=== PATIENT | male | born 1990 | race Caucasian/White ===

== ENCOUNTER 2024-11-06 19:35 | Emergency (ER) | payer OTHER ==
[2024-11-06] MEDS ORDERED: TETRACAINE HCL 0.5% 4ML OPTH ONE (20:07)
[2024-11-06] MEDS ORDERED: FLUORESCEIN SODIUM 1 MG/WRAP ONE (20:07)
[2024-11-06] MEDS ORDERED: TOBRAMYCIN SULF 0.3% OPTH OINT ONE (20:58)
[2024-11-06] MEDS ORDERED: CYCLOPENTOLATE 2% OPTH 2 ML ONE (21:18)
[2024-11-06] MEDS ORDERED: HYDROCODONE/APAP 10/325 TAB ONE (21:18)
[2024-11-06] MEDS ORDERED: IBUPROFEN 400 MG TAB ONE (21:35)
--- NOTE | 2024-11-06 21:36 | EDPHYS ---
Physician Documentation [facility] Name: Edmar Martinez Age: 34 yrs Sex: Male : 1990 Arrival Date: 11/06/2024 Time: 19:35 Bed 8 Private MD: ED Physician Taras Fonseca HPI: 11/06 21:23 This 34 yrs old Male presents to ER via Ambulatory with complaints of Foreign ian Body In Eye. 21:23 The patient is experiencing foreign body sensation, pain, The patient sustained fb at 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 Onset: The symptoms/episode began/occurred 3 day(s) ago. Duration: the symptoms are continuous. Aggravated by blinking, closing eye, light, opening eye. Associated signs and symptoms: Pertinent positives: None. Pertinent negatives: None. Patient does not utilize any form of vision correction. Severity of symptoms: At their worst the symptoms were moderate in the emergency department the symptoms are unchanged. The patient has not experienced similar symptoms in the past. Historical: - Allergies: 20:04 Sulfa (Sulfonamide Antibiotics); me1 - Home Meds: 20:04 None [Active]; me1 - PMHx: 20:04 None; me1 - PSHx: 20:04 Tonsillectomy; Myringotomy and insertion of tympanic ventilation tube; me1 - Immunization history:: Adult Immunizations up to date. - Infectious Disease History:: Denies. - Social history:: Smoking status: Patient reports the use of cigarette tobacco products, smokes one-half pack cigarettes per day. - Family history:: not pertinent. ROS: 21:23 Constitutional: Negative for fever, chills, and weight loss, ENT: Negative for injury, ian pain, and discharge, Neck: Negative for injury, pain, and swelling, Cardiovascular: Negative for chest pain, palpitations, and edema, Respiratory: Negative for shortness of breath, cough, wheezing, and pleuritic chest pain, Abdomen/GI: Negative for abdominal pain, nausea, vomiting, diarrhea, and constipation, Back: Negative for injury and pain, MS/Extremity: Negative for injury and deformity, Skin: Negative for injury, rash, and discoloration, Neuro: Negative for headache, weakness, numbness, tingling, and seizure, Psych: Negative for depression, anxiety, suicide ideation, homicidal ideation, and hallucinations, Allergy/Immunology: Negative for hives, rash, and allergies, Endocrine: Negative for neck swelling, polydipsia, polyuria, polyphagia, and marked weight changes, 21:23 Eyes: Positive for foreign body sensation, injury or acute deformity, pain, Exam: 21:23 Constitutional: This is a well developed, well nourished patient who is awake, alert, ian and in no acute distress. Head/Face: Normocephalic, atraumatic. ENT: Nares patent. No nasal discharge, no septal abnormalities noted. Tympanic membranes are normal and external auditory canals are clear. Oropharynx with no redness, swelling, or masses, exudates, or evidence of obstruction, uvula midline. Mucous membranes moist. Neck: Trachea midline, no thyromegaly or masses palpated, and no cervical lymphadenopathy. Supple, full range of motion without nuchal rigidity, or vertebral point tenderness. No Meningismus. Chest/axilla: Normal chest wall appearance and motion. Nontender with no deformity. No lesions are appreciated. Cardiovascular: Regular rate and rhythm with a normal S1 and S2. No gallops, murmurs, or rubs. Normal PMI, no JVD. No pulse deficits. Respiratory: Lungs have equal breath sounds bilaterally, clear to auscultation and percussion. No rales, rhonchi or wheezes noted. No increased work of breathing, no retractions or nasal flaring. Abdomen/GI: Soft, non-tender, with normal bowel sounds. No distension or tympany. No guarding or rebound. No evidence of tenderness throughout. Back: No spinal tenderness. No costovertebral tenderness. Full range of motion. Skin: Warm, dry with normal turgor. Normal color with no rashes, no lesions, and no evidence of cellulitis. MS/ Extremity: Pulses equal, no cyanosis. Neurovascular intact. Full, normal range of motion., bilateral aka Neuro: Awake and alert, GCS 15, oriented to person, place, time, and situation. Cranial nerves II-XII grossly intact. Motor strength 5/5 in all extremities. Sensory grossly intact. Cerebellar exam normal. Normal gait. Psych: Awake, alert, with orientation to person, place and time. Behavior, mood, and affect are within normal limits. 21:23 Eyes: Periorbital structures: appear normal, no acute changes, no abrasion, no cellulitis, no contusion, no ecchymosis, no erythema, no laceration, no swelling, Pupils: equal, round, and reactive to light and accomodation, Extraocular movements: intact throughout, Conjunctiva: injected, Corneas: foreign body, on the right, at 10 o'clock, a fluorescein strip employed to appreciate the findings, Sclera: no appreciated abnormality, Lids and lashes: appear normal, on the right, no acute changes, funduscopic exam reveals no obvious abnormalities, Nystagmus: is not appreciated, Vital Signs: 20:02 BP 132 / 90; Pulse 99; Resp 16; Temp 98.5; Pulse Ox 99% ; Weight 83.91 kg; Height 6 ft. me1 0 in. ; Pain 6/10; 21:01 BP 116 / 81; Pulse 59; Resp 16; Pulse Ox 97% ; dd2 22:21 BP 120 / 81; Pulse 60; Resp 18; Temp 98.5; Pulse Ox 97% ; Pain 0/10; bm8 20:02 Body Mass Index 25.09 (83.91 kg, 182.88 cm) me1 20:02 Pain Scale: Adult me1 22:21 Pain Scale: Adult bm8 Kasey Coma Score: 21:01 Eye Response: spontaneous(4). Motor Response: obeys commands(6). Verbal Response: dd2 oriented(5). Total: 15. 22:21 Eye Response: spontaneous(4). Motor Response: obeys commands(6). Verbal Response: bm8 oriented(5). Total: 15. Procedures: 21:29 Foreign Body Removal: metal criselda, tetracaine , needle bevel to remove, rust ring ian present. MDM: 19:51 Medical Screening Exam initiated ian 21:29 Differential diagnosis: Corneal abrasion of Corneal ulcer of Foreign body in right eye. ian Data reviewed: vital signs, nurses notes. Consideration of Admission/Observation Escalation of care including admission/observation considered. I considered the following discharge prescriptions or medication management in the emergency department Medications were administered in the Emergency Department. See MAR. Test considered but Not performed: Labs: no labs. Care significantly affected by the following chronic conditions: none. Counseling: I had a detailed discussion with the patient and/or guardian regarding the historical points, exam findings, and any diagnostic results supporting the discharge/admit diagnosis, the need for outpatient follow up, for definitive care, an opthalmologist. 21:32 ED course: dw dr prabhakar longo , 1030 in the morning, will see. [facility] [place] [facility] 11/06 19:52 Order name: Eye Tray; Complete Time: 20:17 [facility] [place] [facility] 11/06 19:52 Order name: Fluoresene Opth strip; Complete Time: 21:09 [facility] [place] [facility] 11/06 21:22 Order name: Misc. Order: patch eye; Complete Time: 21:34 ian Administered Medications: 21:09 Drug: Tetracaine Ophthalmic Drops 0.5 % 1 drops Ophthalmic once Route: Ophthalmic; dd2 Site: right eye; 22:23 Follow up: Response: No adverse reaction bm8 21:28 Drug: Tobramycin Ophthalmic Ointment (0.3 %) 0.5 inches Ophthalmic once; right eye dd2 Route: Ophthalmic; Site: right eye; 22:22 Follow up: Response: No adverse reaction bm8 21:28 Not Given (Physician Discretion): norco10 mg-325 mg 1 tabs PO once dd2 21:28 Drug: Cyclopentolate Drops 0.5 % Ophthalmic Drops (0.5 %) 1 drops Ophthalmic once; dd2 right eye Route: Ophthalmic; Site: right eye; 22:22 Follow up: Response: No adverse reaction bm8 21:37 Drug: Ibuprofen PO 800 mg PO once Route: PO; bm8 22:22 Follow up: Response: No adverse reaction bm8 Disposition Summary: 11/06/24 21:35 Discharge Ordered Notes: Location: Home ian Problem: new ian Symptoms: have improved ian Condition: Stable ian Diagnosis - Ocular pain, right eye - corneal foreign body, removed with residual rust ring ian Followup: ian - With: Private Physician - When: Tomorrow - Reason: Recheck today's complaints, Continuance of care, Re-evaluation by your physician Followup: ian - With: Grey Longo MD - When: Today - Reason: Recheck today's complaints, Re-evaluation by your physician Discharge Instructions: - Discharge Summary Sheet ian - Corneal Abrasion ian - Corneal Abrasion, [id number] ian - Foreign Body ian Forms: - Medication Reconciliation Form ian - Antibiotic Education ian - Prescription Opioid Use ian - Patient Portal Instructions ian - Leadership Thank You Letter ian Prescriptions: - Tobrex 0.3 % Ophthalmic ointment - instill 1 application OPHTHALMIC route every 4-6 hours for 7 days; 3.5 gram ian tube; Refills: 0, Product Selection Permitted Signatures: Taras Fonseca, Diane Steele MD, cha, RN RN me1 Kane Michaud RN RN bm8 CARMINE LOZANO RN RN dd2
--- NOTE | 2024-11-06 21:36 | ER ---
Nurse's Notes [facility] Name: Edmar Martinez Age: 34 yrs Sex: Male : 1990 Arrival Date: 11/06/2024 Time: 19:35 Bed 8 Private MD: Diagnosis: Ocular pain, right eye-corneal foreign body, removed with residual rust ring Presentation: 11/06 20:02 Chief complaint: Patient states: he still has a piece of metal in his right eye since sc1 . Has been on polymixin sulfate and trimethoprim eye drops since Thursday. Pain is 6/10. Coronavirus screen: Vaccine status: Patient reports being unvaccinated. Ebola Screen: No symptoms or risks identified at this time. Initial Sepsis Screen: Does the patient meet any 2 criteria? No. Patient's initial sepsis screen is negative. Does the patient have a suspected source of infection? No. Patient's initial sepsis screen is negative. Risk Assessment: Do you want to hurt yourself or someone else? Patient reports no desire to harm self or others. Onset of symptoms was November 03, 2024. 20:02 Method Of Arrival: Ambulatory [facility] 20:02 Acuity: RALPH 4 me1 Triage Assessment: 20:04 General: Appears uncomfortable, unkempt, well developed, well nourished, Behavior is me1 calm, cooperative, appropriate for age. Pain: Complains of pain in right eye Pain does not radiate. Pain currently is 6 out of 10 on a pain scale. Quality of pain is described as sharp, stinging, Pain began 2-3 days ago. Is continuous. EENT: Reports pain in right eye. Neuro: Level of Consciousness is awake, alert, obeys commands, Oriented to person, place, time, situation, Appropriate for age. Cardiovascular: Patient's skin is warm and dry. Respiratory: Airway is patent Respiratory effort is even, unlabored, Respiratory pattern is regular, symmetrical. Derm: Skin is intact, is healthy with good turgor, Skin is pink, warm \T\ dry. Historical: - Allergies: 20:04 Sulfa (Sulfonamide Antibiotics); me1 - Home Meds: 20:04 None [Active]; me1 - PMHx: 20:04 None; me1 - PSHx: 20:04 Tonsillectomy; Myringotomy and insertion of tympanic ventilation tube; me1 - Immunization history:: Adult Immunizations up to date. - Infectious Disease History:: Denies. - Social history:: Smoking status: Patient reports the use of cigarette tobacco products, smokes one-half pack cigarettes per day. - Family history:: not pertinent. Screenin:05 [facility] ED Fall Risk Assessment (Adult) History of falling in the last 3 months, dd2 including since admission No falls in past 3 months (0 pts) Confusion or Disorientation No (0 pts) Intoxicated or Sedated No (0 pts) Impaired Gait No (0 pts) Mobility Assist Device Used No (0 pt) Altered Elimination No (0 pt) Score/Fall Risk Level 0 - 2 = Low Risk Oriented to surroundings, Maintained a safe environment, Educated pt \T\ family on fall prevention, incl call for assistance when getting out of bed, Assessed \T\ reinforced patient's understanding of fall precautions, Hourly rounding (assess needs \T\ fall precautionary measures) done. Abuse screen: Denies threats or abuse. Nutritional screening: No deficits noted. Tuberculosis screening: No symptoms or risk factors identified. Assessment: 21:01 General: Appears in no apparent distress. uncomfortable, Behavior is calm, cooperative, dd2 appropriate for age. Pain: Complains of pain in right eye. Neuro: Dickens Agitation-Sedation Scale (RASS): 0 - Alert and Calm Level of Consciousness is awake, alert, obeys commands, Oriented to person, place, time, situation, Appropriate for age. Cardiovascular: No deficits noted. Respiratory: No deficits noted. Airway is patent Respiratory effort is even, unlabored, Respiratory pattern is regular, symmetrical. GI: No deficits noted. No signs and/or symptoms were reported involving the gastrointestinal system. : No deficits noted. No signs and/or symptoms were reported regarding the genitourinary system. EENT: Eyes are tearing on inner aspect of conjuctiva of right eye and right inner canthus Reports pain in right eye METAL IN RT EYE. EENT: No deficits noted. No signs and/or symptoms were reported regarding the EENT system. Derm: No deficits noted. No signs and/or symptoms reported regarding the dermatologic system. Musculoskeletal: No deficits noted. No signs and/or symptoms reported regarding the musculoskeletal system. 22:21 Reassessment: Patient appears in no apparent distress at this time. Patient and/or bm8 family updated on plan of care and expected duration. Pain level reassessed. Patient is alert, oriented x 3, equal unlabored respirations, skin warm/dry/pink. eye patch applied to right eye, follow up with eye doc tomorrow at 1030 address on discharge paperwork Patient states feeling better. Patient states symptoms have improved. Vital Signs: 20:02 BP 132 / 90; Pulse 99; Resp 16; Temp 98.5; Pulse Ox 99% ; Weight 83.91 kg; Height 6 ft. me1 0 in. ; Pain 6/10; 21:01 BP 116 / 81; Pulse 59; Resp 16; Pulse Ox 97% ; dd2 22:21 BP 120 / 81; Pulse 60; Resp 18; Temp 98.5; Pulse Ox 97% ; Pain 0/10; bm8 20:02 Body Mass Index 25.09 (83.91 kg, 182.88 cm) me1 20:02 Pain Scale: Adult me1 22:21 Pain Scale: Adult bm8 Kasey Coma Score: 21:01 Eye Response: spontaneous(4). Motor Response: obeys commands(6). Verbal Response: dd2 oriented(5). Total: 15. 22:21 Eye Response: spontaneous(4). Motor Response: obeys commands(6). Verbal Response: bm8 oriented(5). Total: 15. ED Course: 19:38 Patient arrived in ED. ra3 19:50 Taras Fonseca MD is Attending Physician. [facility] 20:03 Triage completed. me1 20:04 Arm band placed on Patient placed in an exam room. me1 21:01 CARMINE LOZANO, NATALY is Primary Nurse. dd2 21:05 Side rails up X 1. Patient has correct armband on for positive identification. Bed in dd2 low position. Call light in reach. Side rails up X 1. Client placed on continuous cardiac and pulse oximetry monitoring. NIBP monitoring applied. Door closed. Noise minimized. Pillow given. Verbal reassurance given. 21:05 No provider procedures requiring assistance completed. Patient maintains SpO2 dd2 saturation greater than 95% on room air. 21:33 Grey Peterson MD is Referral Physician. [facility] 22:21 Provided Education on: post er care, follow up with eye doc. bm8 22:21 Patient did not have IV access during this emergency room visit. bm8 Administered Medications: 21:09 Drug: Tetracaine Ophthalmic Drops 0.5 % 1 drops Ophthalmic once Route: Ophthalmic; dd2 Site: right eye; 22:23 Follow up: Response: No adverse reaction bm8 21:28 Drug: Tobramycin Ophthalmic Ointment (0.3 %) 0.5 inches Ophthalmic once; right eye dd2 Route: Ophthalmic; Site: right eye; 22:22 Follow up: Response: No adverse reaction bm8 21:28 Not Given (Physician Discretion): norco10 mg-325 mg 1 tabs PO once dd2 21:28 Drug: Cyclopentolate Drops 0.5 % Ophthalmic Drops (0.5 %) 1 drops Ophthalmic once; dd2 right eye Route: Ophthalmic; Site: right eye; 22:22 Follow up: Response: No adverse reaction bm8 21:37 Drug: Ibuprofen PO 800 mg PO once Route: PO; bm8 22:22 Follow up: Response: No adverse reaction bm8 Medication: 21:05 VIS not applicable for this client. dd2 Outcome: 21:35 Discharge ordered by . ian 22:21 Discharged to home ambulatory, with family, bm8 22:21 Condition: stable 22:21 Discharge instructions given to patient, family, Instructed on discharge instructions, follow up and referral plans. no drinking with medication, no driving heavy equipment, medication usage, safety practices, Demonstrated understanding of instructions, follow-up care, medications, Prescriptions given X 1, 22:24 Patient left the ED. bm8 Signatures: Taras Fonseca MD MD cha Eddleman, Michelle, RN RN sc1 Ana Paula Esqueda [facility] Kane Michaud RN RN bm8 CARMINE LOZANO RN RN dd2
[2024-11-06 22:30] VITALS: TEMP 98.5
[2024-11-06 22:31] VITALS: O2SAT 97
[2024-11-06 22:33] VITALS: BP 120/81
== END 2024-11-06 22:24 | disposition home or self-care (01) ==
LOC: ER 19:35
PROC: 08C8XZZ Extirpation of Matter from Right Cornea, External Approach (ICD-10-PCS; principal; 2024-11-06)
DX: T15.01XA Foreign body in cornea, right eye, initial encounter (principal); F17.210 Nicotine dependence, cigarettes, uncomplicated
CPT/HCPCS: 99284